=== PATIENT | female | born 1975 | race Caucasian/White ===

== ENCOUNTER → 2016-08-28 | Outpatient (CLI) | payer BC ==
[~2016-08-28] MED LIST: BACT400T PO; DOXY100C PO; HYDR7.5T76 PO; MIRA33504 PO
== END ==
LOC: CPRE 10:49
PROVIDERS: ATTEND Obstetrics & Gynecology
DX: Z01.812 Encounter for preprocedural laboratory examination (principal); R10.2 Pelvic and perineal pain

== ENCOUNTER → 2016-09-05 | Day surgery (SDC) | payer BC ==
[~2016-09-05] VITALS: Ht 149.9 cm; Wt 109.3 kg
[~2016-09-05] MED LIST changes: +*hydrOXYzine 25 MG VIAL PERIprocedural Use ONLY IM ONE; +*morphine SULFATE 8 MG/ML PERIprocedure ONLY ONE; +ACETAMINOPHEN 1000 MG/100 ML VIAL IV ONE; -BACT400T PO; +BUPIVACAINE HCL PF 0.25% 30 ML VIAL INFIL ONE; +DICLOFENAC SODIUM 37.5 MG/ML VIAL IV PUSH ONE; +DO NOT ADM ANY ANTICOAGULANT DRUGS XX PRN; -DOXY100C PO; +FAMOTIDINE 20 MG/2 ML VIAL ONE; +HYDROmorphone HCL PF 1 MG/ML VIAL IVP PRN; +IBUPROFEN 600 MG TAB PO PRN; +INSULIN HUMAN REGULAR 1,000 UNITS/10 ML VIAL SQ PRN; +KETOROLAC TROMETHAMINE 30 MG/ML (IVP) VIAL IVP PRN; +LACTATED RINGER'S 1000 ML INJ 1,000 ML IV ONE; +LACTATED RINGER'S 1000 ML INJ 1,000 ML IV SCH; +LACTATED RINGER'S 1000 ML IV SCH; +LORazepam 0.5 MG TAB PO PRN; +METOPROLOL TARTRATE 25 MG TAB PO PRN; +MORPHINE SULFATE 8 MG/ML INJ ONE; +NORMOSOL R INJ 1,000 ML IV ONE; +ONDANSETRON HCL 4 MG/2 ML VIAL IV PUSH ONE; +ONDANSETRON HCL 4 MG/2 ML VIAL IVP PRN; +PROMETHAZINE INJ 25 MG/ML VIAL IM PRN; +PROPOFOL 200 MG/20 ML AMP IV ONE; +SODIUM CHLORID 0.9% 500 ML IV SCH; +SODIUM CHLORIDE 0.9% FLUSH 5 ML FLUSH FLUSH PRN; +SODIUM CHLORIDE 0.9% FLUSH 5 ML FLUSH FLUSH SCH; +SUGAMMADEX SODIUM 200 MG/2 ML VIAL IV PUSH ONE; +ceFAZolin 2 GM PREMIX 50 ML IV SCH; +diphenhydrAMINE HCL 25 MG CAP PO PRN; +ePHEDrine/NS 50 MG/5 ML SYR IV ONE; +fentaNYL CITRATE 250 MCG/5 ML AMP ONE; +oxyCODONE/ACETAMINOPHEN 5 MG/325 MG TAB PO PRN
[2016-09-05 06:29] VITALS: BP 134/71; PULSE 76; RESP 16; TEMP 98.1; O2SAT 100
[2016-09-05] MEDS: APREPITANT 40 MG CAP PO SCH (06:36)
[2016-09-05 11:50] VITALS: BP 120/83; PULSE 67; RESP 20; TEMP 97.4; O2SAT 99
--- NOTE | 2016-09-10 12:31 | MP ---
cc: VINCENZO FRIEDMAN M.D. DATE OF SURGERY: 09/05/2016 PREOPERATIVE DIAGNOSIS Pelvic pain, symptomatic right ovarian cyst. PROCEDURE Diagnostic laparoscopy exam under anesthesia. POSTOPERATIVE DIAGNOSIS Pelvic pain, symptomatic right ovarian cyst, normal pelvis. ANESTHESIA General with endotracheal intubation. ESTIMATED BLOOD LOSS None. DRAINS Batista to gravity during procedure only, 690 cc out. INDICATION FOR PROCEDURE The patient has been followed over time with pelvic ultrasounds demonstrating an enlarging right ovarian cyst. Recent ultrasound measured 5 x 6 cm solitary cyst of the right ovary enlarged from the previous ultrasound. Recommendation was to proceed with diagnostic laparoscopy, possible ovarian cystectomy, possible ovarian oophorectomy. The patient received Ancef prophylactically x2 grams. OPERATIVE FINDINGS The patient had normal-appearing external genitalia. Cervix was normal. Uterus was small, slightly retroverted. Pelvic findings revealed normal-appearing adnexa. There was no evidence of a right ovarian cyst or cyst in the pelvis or fallopian tube. The appendix was normal. The uterus was slightly scarred. Previous section was noted and well-healed without any extensive adhesions. The upper quadrants appeared normal. PROCEDURE DESCRIPTION The patient was taken to the operating room and under general anesthesia had an endotracheal tube placed. She was carefully positioned in the dorsal lithotomy position using Girish stirrups on the lower extremities. She had appropriate padding and appropriate positioning. Sequentials were placed on lower extremities for VTE prophylaxis. After she was prepped and draped a timeout was conducted and agreed by all present in the room. A simple exam revealed the findings stated above. A Batista catheter was inserted under sterile conditions draining clear urine. The cervix was identified with a bivalve retractor. A tenaculum was attached anteriorly. A uterine sound was placed to about 8 cm. The cervix was dilated and a HUMI manipulator was inserted through the cervical os and secured. Retractors were removed. Gloves were changed. The abdomen was examined. Previous Pfannenstiel scar was well-healed. An attempt to place a trocar directly through the umbilicus was unsuccessful. A Veress needle was utilized to insufflate at low pressure and then once this pneumoperitoneum was established the trocar was inserted through the umbilicus into the peritoneal cavity without complication. Examination of the pelvis required steep Trendelenburg positioning and placement of an accessory port on the right lateral flank. This was placed under direct vision. Manipulation of the pelvic anatomy revealed the findings stated above. Photographs were taken. The appendix was normal. The liver edge and upper quadrant appeared normal. At the completion of the case the patient was stable. Hemostasis was confirmed. The trocars were removed after decompression of the pneumoperitoneum. The skin incisions were closed with a subcuticular suture of 4-0 Monocryl, Steri-Strips and Band-Aids. The HUMI manipulator, tenaculum and Batista were removed in a sterile fashion without complication. No vaginal bleeding. At the completion of the case the patient was stable, extubated, and taken to the recovery room on room air. Vincenzo Friedman MD SJSammy/BT /8:59 AM /12:19 PM
== END | disposition home or self-care (01) ==
LOC: HSDC 05:40
PROVIDERS: ATTEND Obstetrics & Gynecology
DX: R10.2 Pelvic and perineal pain (principal); N83.201 Unspecified ovarian cyst, right side
CPT/HCPCS: 00840; 49320; 86850; 86900; 86901; J0131; J0690; J1130; J2270; J2405; J3010; J3410; J7120; J8501

== ENCOUNTER 2016-09-18 08:45 | Emergency (ER) | payer BC ==
[~2016-09-18] VITALS: Ht 149.9 cm; Wt 109.0 kg
[2016-09-18 08:59] VITALS: BP 123/80; PULSE 60; RESP 16; TEMP 98.6; O2SAT 100
[2016-09-18] MEDS ORDERED: MIRA33504 PO (09:08)
[2016-09-18 09:18] LABS: BLOOD, URINE NEG (NEG); GLUCOSE,URINE NEG (NEG); KETONE, URINE NEG (NEG); NITRITE,URINE NEG (NEG)
[2016-09-18 09:22] LABS: METHOD OF COLLECTION CLEAN CATCH; URINE COLOR YELLOW (YELLW/STRAW)
[2016-09-18 09:24] LABS: BACTERIA, URINE MOD /hpf; COMMENT (UR) CULTURE INDICATED; COMMENT2 (UR) MUCOUS PRESENT; CULTURE IF INDICATED CULTURE INDICATED
--- NOTE | 2016-09-18 09:31 | PD ---
HPI Chief Complaint: Abdominal Pain Time Seen by Provider: 09:01 Travel History International Travel<30 days: No Contact w/Intl Traveler<30days: No Traveled to known affect area: No History of Present Illness HPI The patient was seen and examined in the presence of the nurse. This patient complains of abdominal pain. Duration is 10 days. Location is right upper quadrant. Started a day or 2 after she had exploratory laparoscopy was essentially negative. Pain is worse when she moves or shifts position. She has some nausea but no vomiting or fever. She has been eating. She had an outpatient CT of abdomen and pelvis yesterday at [facility]. Symptoms severity is moderate. No alleviating factors. PFSH Past Medical History Arthritis: No Asthma: Yes (CHILD) Autoimmune Disease: No Blood Disorders: No Anxiety: No Depression: No Heart Rhythm Problems: No Cancer: Yes (MYODYSPLASIA CERVIX) Cardiovascular Problems: No High Cholesterol: No Chemotherapy: No Chest Pain: No Congestive Heart Failure: No COPD: No Cerebrovascular Accident: No Diabetes: No Diminished Hearing: No Endocrine: No Gastrointestinal Disorders: No GERD: No Glaucoma: No Genitourinary: No Headaches: Yes Hepatitis: No Hiatal Hernia: No Heparin Induced Thrombocytopen: No Hypertension: No Immune Disorder: No Kidney Stones: No Musculoskeletal: No Neurologic: Yes (MIGRAINES) Psychiatric: No Reproductive: Yes (CYST ON RIGHT OVARY) Respiratory: Yes (Asthma CHILD) Immunizations Current: Yes Migraines: Yes Myocardial Infarction: No Radiation Therapy: No Renal Failure: No Seizures: No Sickle Cell Disease: No Sleep Apnea: No Thyroid Disease: No Ulcer: No Tetanus Vaccination: < 5 Years ?: Not : 2 Para: 2 Ovarian Cysts: Yes (1993) Tubal Ligation: Yes Past Surgical History Abdominal Surgery: No AICD: No Appendectomy: No Arteriovenous Shunt: No Cardiac Surgery: No Section: Yes (X1) Cholecystectomy: No Ear Surgery: Yes ("TUBES,CHILDHOOD") Endocrine Surgery: No Eye Surgery: No Genitourinary Surgery: No Gynecologic Surgery: Yes (CERVICAL CRYO, , ABLATION, TUBAL LIGATION) Insulin Pump: No Joint Replacement: No Neurologic Surgery: No Oral Surgery: No Pacemaker: No Thoracic Surgery: No Other Surgery: Yes (1993--CRYO(CERVIX)) Social History Alcohol Use: Yes (SOCIAL) Tobacco Use: No Substance Use: No Allergies-Medications (Allergen,Severity, Reaction): Coded Allergies: Levaquin (Verified Allergy, Severe, Rash, 09/18/16) Metrogel (Verified Allergy, Severe, Rash, 09/18/16) Reported Meds & Prescriptions Reported Meds & Active Scripts Active Reported Miralax Powder (Polyethylene Glycol 3350 Powder) 17 Gm Powd 17 Gm PO DAILY Mix and dissolve one measuring cap-ful (17 grams) in water or juice. Review of Systems General / Constitutional: No: Fever Eyes: No: Visual changes HENT: No: Headaches Cardiovascular: No: Chest Pain or Discomfort Respiratory: No: Shortness of Breath Gastrointestinal: Positive: Nausea, Abdominal Pain Genitourinary: No: Dysuria Musculoskeletal: No: Pain Skin: No Rash Neurologic: No: Weakness Psychiatric: No: Depression Endocrine: No: Polydipsia Hematologic/Lymphatic: No: Easy Bruising Physical Exam Narrative GENERAL: Well-nourished, well-developed patient with right upper quadrant pain. SKIN: Warm and dry. HEAD: Atraumatic. Normocephalic. EYES: Pupils equal and round. No scleral icterus. No injection or drainage. ENT: No nasal bleeding or discharge. Mucous membranes pink and moist. NECK: Trachea midline. No JVD. CARDIOVASCULAR: Regular rate and rhythm. No murmur appreciated. RESPIRATORY: No accessory muscle use. Clear to auscultation. Breath sounds equal bilaterally. GASTROINTESTINAL: Abdomen soft, right upper quadrant is tender but no rebound or guarding, nondistended. Hepatic and splenic margins not palpable. MUSCULOSKELETAL: No obvious deformities. No clubbing. No cyanosis. No edema. NEUROLOGICAL: Awake and alert. No obvious cranial nerve deficits. Motor grossly within normal limits. Normal speech. PSYCHIATRIC: Appropriate mood and affect; insight and judgment normal. Data Data Last Documented VS Vital Signs Date Time Temp Pulse Resp B/P Pulse Ox O2 Delivery O2 Flow Rate FiO2 09/18/16 08:59 98.6 60 16 123/80 100 Orders Urinalysis - C+S If Indicated (09/18/16 09:01) Ed Urine Pregnancytest Poc (09/18/16 09:01) Urine Culture (09/18/16 09:00) Complete Blood Count With Diff (09/18/16 09:25) Comprehensive Metabolic Panel (09/18/16 09:25) Lipase (09/18/16 09:25) Labs Laboratory Tests Test 09/18/16 09/18/16 09:00 09:30 Urine Collection Type CLEAN CATCH Urine Color YELLOW Urine Turbidity CLEAR Urine pH 7.0 Urine Specific [place] 1.013 Urine Protein NEG mg/dL Urine Glucose (UA) NEG mg/dL Urine Ketones NEG mg/dL Urine Occult Blood NEG Urine Nitrite NEG Urine Bilirubin NEG Urine Leukocyte Esterase NEG Urine Squamous Epithelial 6-8 /hpf Cells Urine Amorphous Sediment FEW Urine Bacteria MOD /hpf Microscopic Urinalysis Comment CULTURE INDICATED Urine Collection Time 0900 White Blood Count 7.4 TH/MM3 Red Blood Count 5.39 MIL/MM3 Hemoglobin 14.9 GM/DL Hematocrit 46.1 % Mean Corpuscular Volume 85.5 FL Mean Corpuscular Hemoglobin 27.6 PG Mean Corpuscular Hemoglobin 32.3 % Concent Red Cell Distribution Width 14.9 % Platelet Count 179 TH/MM3 Mean Platelet Volume 10.1 FL Neutrophils (%) (Auto) 69.0 % Lymphocytes (%) (Auto) 24.2 % Monocytes (%) (Auto) 5.6 % Eosinophils (%) (Auto) 0.8 % Basophils (%) (Auto) 0.4 % Neutrophils # (Auto) 5.1 TH/MM3 Lymphocytes # (Auto) 1.8 TH/MM3 Monocytes # (Auto) 0.4 TH/MM3 Eosinophils # (Auto) 0.1 TH/MM3 Basophils # (Auto) 0.0 TH/MM3 CBC Comment DIFF FINAL Differential Comment Sodium Level 142 MEQ/L Potassium Level 3.6 MEQ/L Chloride Level 100 MEQ/L Carbon Dioxide Level 29.7 MEQ/L Anion Gap 12 MEQ/L Blood Urea Nitrogen 12 MG/DL Creatinine 0.70 MG/DL Estimat Glomerular Filtration 92 ML/MIN Rate Random Glucose 91 MG/DL Calcium Level 8.5 MG/DL Total Bilirubin 0.6 MG/DL Aspartate Amino Transf 55 U/L (AST/SGOT) Alanine Aminotransferase 99 U/L (ALT/SGPT) Alkaline Phosphatase 164 U/L Total Protein 7.5 GM/DL Albumin 3.5 GM/DL Lipase 206 U/L [facility] Medical Decision Making Medical Screen Exam Complete: Yes Emergency Medical Condition: Yes Medical Record Reviewed: Yes Differential Diagnosis Cholecystitis, biliary colic, hepatitis, pancreatitis Narrative Course I have reviewed the patient's electronic medical record. I reviewed her operative report from recent laparoscopy as well as her CT of abdomen and pelvis done yesterday IV placed CBC is normal Metabolic profile is normal LFTs have minimal elevation of ALT and AST Lipase is normal I discussed her CT scan of abdomen and pelvis with radiologist Dr. Damon. He reports that the CAT scan looks good and there is no explain will cause for her right upper quadrant pain. He specifically noted the gallbladder looks okay. She has both pain and nausea medicine at home but has not been taking them. Etiology of her pain is not clear. She has no fever or leukocytosis. No clinical suspicion of emergent process going on. Recommend she follow up with her physician to discuss the next step. I don't believe she requires hospitalization now. Symptoms are not worse with eating but are worse with movement, certainly this is not typical of cholecystitis. I've advised her to return if she worsens. I gave her copies of her labs and CAT scan and she should discuss them with her physician Diagnosis Primary Impression: Abdominal pain Qualified Code: R10.11 - Right upper quadrant abdominal pain Additional Instructions: The patient was advised to follow up with their physician and return if they worsen. Med/Other Pt SpecificInfo: Other Disposition: 01 DISCHARGE HOME Condition: Stable Mookie Damon MD Sep 18, 2016 09:31
[2016-09-18 09:38] LABS: AUTOMATED NEUTROPHIL # 5.1 TH/MM3 (1.8-7.7); BASOPHIL % 0.4 % (0.0-2.0); EOSINOPHIL # 0.1 TH/MM3 (0-0.4); EOSINOPHIL % 0.8 % (0.0-4.0); HEMATOCRIT 46.1 % (35.0-46.0); HEMO FLAGS DIFF FINAL; LYMPH % 24.2 % (9.0-44.0); LYMPHOCYTE # 1.8 TH/MM3 (1.0-4.8); MEAN CELL VOLUME 85.5 FL (80.0-100.0); MEAN CORPUSCULAR HEMOGLOBIN 27.6 PG (27.0-34.0); MEAN CORPUSCULAR HGB CONC 32.3 % (32.0-36.0); MONO % 5.6 % (0.0-8.0); PLATELET COUNT 179 TH/MM3 (150-450); RED BLOOD COUNT 5.39 MIL/MM3 (4.00-5.30); RED CELL DISTRIBUTION WIDTH 14.9 % (11.6-17.2); WHITE BLOOD COUNT 7.4 TH/MM3 (4.0-11.0)
[2016-09-18 09:53] LABS: BLOOD UREA NITROGEN 12 MG/DL (7-18)
[2016-09-18 09:54] LABS: CHLORIDE 100 MEQ/L (98-107); GLOMERULAR FILTRATION RATE 92 ML/MIN (>89); POTASSIUM 3.6 MEQ/L (3.5-5.1); SODIUM (NA) 142 MEQ/L (136-145)
[2016-09-18 10:36] LABS: ALKALINE PHOSPHATASE 164 U/L (45-117); ANION GAP 12 MEQ/L (5-15); BICARBONATE 29.7 MEQ/L (21.0-32.0); TOTAL BILIRUBIN ADULT 0.6 MG/DL (0.2-1.0)
[2016-09-18 10:51] LABS: ALT (GPT) 99 U/L (10-53); AST (GOT) 55 U/L (15-37)
[2016-09-18 11:13] VITALS: BP 102/63
== END 2016-09-18 11:28 | disposition home or self-care (01) ==
LOC: PHED 08:45
DX: R10.11 Right upper quadrant pain (principal)
CPT/HCPCS: 80053; 81001; 83690; 84703; 85025; 87086; 99284

== ENCOUNTER 2016-09-19 12:39 | Observation (INO) | payer BC ==
[~2016-09-19 12:39] MED LIST changes: -*hydrOXYzine 25 MG VIAL PERIprocedural Use ONLY IM ONE; -*morphine SULFATE 8 MG/ML PERIprocedure ONLY ONE; -ACETAMINOPHEN 1000 MG/100 ML VIAL IV ONE; -BUPIVACAINE HCL PF 0.25% 30 ML VIAL INFIL ONE; -DICLOFENAC SODIUM 37.5 MG/ML VIAL IV PUSH ONE; -DO NOT ADM ANY ANTICOAGULANT DRUGS XX PRN; -FAMOTIDINE 20 MG/2 ML VIAL ONE; -HYDR7.5T76 PO; -HYDROmorphone HCL PF 1 MG/ML VIAL IVP PRN; -IBUPROFEN 600 MG TAB PO PRN; -INSULIN HUMAN REGULAR 1,000 UNITS/10 ML VIAL SQ PRN; -KETOROLAC TROMETHAMINE 30 MG/ML (IVP) VIAL IVP PRN; -LACTATED RINGER'S 1000 ML INJ 1,000 ML IV ONE; -LACTATED RINGER'S 1000 ML INJ 1,000 ML IV SCH; -LACTATED RINGER'S 1000 ML IV SCH; -LORazepam 0.5 MG TAB PO PRN; -METOPROLOL TARTRATE 25 MG TAB PO PRN; -MORPHINE SULFATE 8 MG/ML INJ ONE; -NORMOSOL R INJ 1,000 ML IV ONE; -ONDANSETRON HCL 4 MG/2 ML VIAL IV PUSH ONE; -ONDANSETRON HCL 4 MG/2 ML VIAL IVP PRN; -PROMETHAZINE INJ 25 MG/ML VIAL IM PRN; -PROPOFOL 200 MG/20 ML AMP IV ONE; -SODIUM CHLORID 0.9% 500 ML IV SCH; -SODIUM CHLORIDE 0.9% FLUSH 5 ML FLUSH FLUSH PRN; -SODIUM CHLORIDE 0.9% FLUSH 5 ML FLUSH FLUSH SCH; -SUGAMMADEX SODIUM 200 MG/2 ML VIAL IV PUSH ONE; -ceFAZolin 2 GM PREMIX 50 ML IV SCH; -diphenhydrAMINE HCL 25 MG CAP PO PRN; -ePHEDrine/NS 50 MG/5 ML SYR IV ONE; -fentaNYL CITRATE 250 MCG/5 ML AMP ONE; -oxyCODONE/ACETAMINOPHEN 5 MG/325 MG TAB PO PRN
[2016-09-19] MEDS ORDERED: SODIUM CHLORIDE 0.9% FLUSH 5 ML FLUSH FLUSH PRN (14:30)
[2016-09-19] MEDS ORDERED: HYDROcodone/IBUPROFEN 7.5MG/200MG TAB PO PRN ×2 (14:30→14:45)
[2016-09-19] MEDS ORDERED: diphenhydrAMINE HCL 25 MG CAP PO PRN (14:30)
[2016-09-19] MEDS ORDERED: KETOROLAC TROMETHAMINE 30 MG/ML (IVP) VIAL IVP PRN (14:30)
[2016-09-19] MEDS ORDERED: IBUPROFEN 600 MG TAB PO PRN (14:30)
[2016-09-19] MEDS: LACTATED RINGER'S 1000 ML INJ 1,000 ML IV SCH (15:16)
[2016-09-19] MEDS: SODIUM CHLORIDE 0.9% FLUSH 5 ML FLUSH FLUSH SCH ×2 (15:16→21:00)
[2016-09-19] MEDS ORDERED: ZOLPIDEM TARTRATE 10 MG TAB PO PRN (15:45)
[2016-09-19 16:00] VITALS: BP 137/90; PULSE 54; RESP 20; TEMP 98.2; O2SAT 99
--- NOTE | 2016-09-19 16:39 | MH ---
cc: VINCENZO FRIEDMAN M.D. DATE OF ADMISSION 09/19/2016 DATE OF 1975 HISTORY OF THE PRESENT ILLNESS The patient is a 41-year-old female who is status post operative laparoscopy from two weeks ago, September 12. At one point she had a diagnostic scope for a suspected right ovarian cyst which had resolved spontaneously. There was no other abnormalities noted. The laparoscopy was simply diagnostic procedure which was unremarkable. Since that time the patient developed pain in her right upper quadrant. She was seen in the office on September 17 with increasing left upper quadrant pain. CT scan of the abdomen with contrast revealed a normal liver, gallbladder with no other significant findings. The patient's pain continued and became worse over the next 48 hours. She was seen in the emergency department at [facility] on September 18, [address] Elia Damon. Laboratory values reflected an increase in her liver enzymes, AST and ALT and alkaline phosphatase. Otherwise again no significant findings. Pain was considered moderate. The patient did not warrant admission. The patient over the next 24 hours developed significant pain at which point a direct admission for further evaluation and observation was recommended. The patient is to be admitted for observation, consultation with gastroenterology. MRI of the liver was been ordered. PAST MEDICAL HISTORY The patient's past medical history: 1. The patient has a history of reactive airway disease managed with an inhaler. 2. History of anxiety disorder. 3. Migraine headaches. MEDICATIONS The patient denies the use of any current medications. ALLERGIES SHE HAS AN ALLERGY TO LEVAQUIN AND METROGEL. SOCIAL HISTORY Uses alcohol socially. Denies tobacco or substance abuse. PAST SURGICAL HISTORY Includes: 1. Cervical cryosurgery 1993. 2. section. 3. Endometrial ablation. 4. And tubal ligation. 5. Diagnostic laparoscopy recently two weeks ago. FAMILY HISTORY The patient's family history is noncontributory. PHYSICAL EXAMINATION GENERAL: The patient is an ill-appearing obese female. VITAL SIGNS: Stable. She is afebrile. Blood pressures 116/74. HEENT: Shows no adenopathy, thyromegaly. NECK: Supple. Full range of motion. LUNGS: Clear in all carpenter. CARDIOVASCULAR: Regular rate and rhythm without murmur, rub or gallop. ABDOMEN: Obese. laparoscopy incisions are well-healed. She has pain in the right upper quadrant with rebound and guarding. Normal bowel sounds. PELVIC: Examination is unremarkable. EXTREMITIES: The patient's extremities are symmetrical, full range of motion. There is no cyanosis, clubbing or edema. NEUROLOGICAL: Exam is grossly intact, nonfocal. ASSESSMENT Status post diagnostic laparoscopy with subsequent right upper quadrant pain, elevation in liver enzymes, negative CT scan. PLAN OF MANAGEMENT Admit for observation. Follow liver enzymes. MRI of the liver has been ordered. Medical consultation for co-management and gastroenterology consultation had been ordered. Repeat liver enzymes, CBC, BMP, hepatitis panel have been ordered. Vincenzo Friedman MD SJSammy/KK /3:50 PM /4:22 PM
[2016-09-19] MEDS ORDERED: GADODIAMIDE PF 287 MG/ML 20 ML VIAL (for RAD MRI) IV ONE (16:48)
--- NOTE | 2016-09-19 17:14 | PD.CONS ---
HPI Service [facility] Consult Requested By Dr. Man Reason for Consult Medical management elevated liver enzymes, Right UQ pain. Primary Care Physician Unknown Diagnoses: History of Present Illness Patient is a 41-year-old white female with primary medical history of reactive airway, anxiety, migraine headaches, ovarian cyst. She is status post laparoscopy for ovarian cyst last 09/12/16. The suspected right ovarian cyst spontaneously resolved without any abnormalities noted procedure was done as diagnostic. As per patient report, post laparoscopy the pain remained and never went away. She thought at first that it was related to the procedure however, the pain continues to persist up to to stay. She was seen in the ED yesterday 09/18/16. She was noted to have elevated liver enzymes, ALT, AST and AlkPhos. Otherwise, with no significant findings. She was sent home. Patient was directly admitted today by fountain worker Dr. Man, S patient continues to have significant pain without relief. Consulted for medical management of elevated liver enzymes, right upper quadrant pain. Patient reports pain is in the right upper quadrant. Sharp, rated 10 over 10, states it "takes her breath away." Aggravated by movement. She was taking ibuprofen, no Tylenol to relieve pain. Complains of nausea, no vomiting. She was given MiraLAX prior to admission and states it made her have some good bowel movement. She also reports she was on high protein low-carb diet and had stopped. Denies stool changes, urinary changes. Denies fevers, chills, vomiting, diarrhea, abdominal cramping. Review of Systems Other Negative except for what is noted on history of present illness. Past Family Social History Allergies: Coded Allergies: Levaquin (Verified Allergy, Severe, Rash, 09/18/16) Metrogel (Verified Allergy, Severe, Rash, 09/18/16) Past Medical History Reactive airway Anxiety Migraine headaches Past Surgical History Laparoscopic diagnostic procedure for ovarian cyst Cervical cryosurgery 1993 Endometrial ablation Tubal ligation Reported Medications Motrin Active Ordered Medications Current Medications Medications (Trade) Dose Ordered Sig/Latoya Route Start Time Stop Time Status Last Admin (Lr 1000 ml Inj) 1,000 ml @ 125 mls/hr Q8H IV 09/19/16 15:00 09/19/16 15:16 (NS Flush) 2 ml UNSCH PRN FLUSH 09/19/16 14:30 (NS Flush) 2 ml BID FLUSH 09/19/16 14:30 09/19/16 15:16 (Motrin) 600 mg Q6H PRN PO 09/19/16 14:30 (Toradol Inj) 30 mg Q6H PRN IVP 09/19/16 14:30 09/24/16 14:29 (Benadryl) 25 mg Q6H PRN PO 09/19/16 14:30 (Vicoprofen 7.5-200 Mg) 1 tab Q4H PRN PO 09/19/16 14:30 (Vicoprofen 7.5-200 Mg) 2 tab Q6H PRN PO 09/19/16 14:45 (Ambien) 10 mg HS PRN PO 09/19/16 15:45 Family History Denies significant family medical history Social History Reports occasional alcohol use 1-2 drinks in a month Denies tobacco use Denies illicit drug use Physical Exam Vital Signs Vital Signs Date Time Temp Pulse Resp B/P Pulse Ox O2 Delivery O2 Flow Rate FiO2 09/19/16 16:00 98.2 54 20 137/90 99 Physical Exam GENERAL: This is an obese, well-developed patient, in no apparent distress. SKIN: No rashes, ecchymoses or lesions. Cool and dry. HEAD: Atraumatic. Normocephalic. No temporal or scalp tenderness. EYES: Pupils equal round and reactive. Extraocular motions intact. No scleral icterus. No injection or drainage. ENT: Nose without bleeding. Throat without erythema, tonsillar hypertrophy or exudate. Uvula midline. Airway patent. NECK: Trachea midline. No JVD or lymphadenopathy. Supple, nontender, no meningeal signs. CARDIOVASCULAR: Regular rate and rhythm without murmurs, gallops, or rubs. RESPIRATORY: Clear to auscultation. Breath sounds equal bilaterally. No wheezes , rales, or rhonchi. GASTROINTESTINAL: Abdomen soft, hypoactive bowel sounds. Right upper quadrant tenderness to light palpation. MUSCULOSKELETAL: Extremities without clubbing, cyanosis, or edema. No joint tenderness, effusion, or edema noted. No calf tenderness. Negative Homans sign bilaterally. NEUROLOGICAL: Awake and alert. Oriented 3. Motor and sensory grossly within normal limits. Five out of 5 muscle strength in all muscle groups. No focal neuro deficit. Normal speech. Imaging Abdominal MRI - showed normal size of the liver normal signal intensity. No lesion is identified. Her complaint is within normal limits. Biliary without intra-or extrahepatic biliary ductal dilatation. Gallbladder contains no stones. Negative MRI of the abdomen. Assessment and Plan Problem List: (1) Abdominal pain ICD Code: R10.9 Status: Acute (2) Elevated liver enzymes ICD Code: R74.8 Status: Acute (3) Right upper quadrant abdominal pain ICD Code: R10.11 Status: Acute Assessment and Plan Patient is a 41-year-old white female with primary medical history of reactive airway, anxiety, migraine headaches, ovarian cyst. She is status post laparoscopy for ovarian cyst last 09/12/16. The suspected right ovarian cyst spontaneously resolved without any abnormalities noted procedure was done as diagnostic. As per patient report, post laparoscopy the pain remained and never went away. Consulted for medical management. Right upper quadrant pain - no distention noted, tenderness to light palpation, negative McBurney's. No Jaundiced noted. - ?Guerra's sign, as pain is present with any movement including, increase abdominal pain with inspiration. - Abdominal MRI negative, HIDA scan - AST 55, ALT 99, AlkPhos 164 - Consulted GI - Check hepatitis panel, repeat labs, check UA - Avoid hepatotoxins Elevated liver enzymes - denies any tylenol use, herbal medications or supplements - previously on high protein low calorie diet - AST 55, ALT 99, AlkPhos 164 - Repeat LFTs. Monitor trend. - hepatitis panel ordered Thank you for this consultation. We will follow patient with you. Written by Rick Gilmore, acting as scribe for Dr. Lofton on 09/19/16 at 16:54. Code Status Full code Discussed Condition With Patient, nursing Rick Calvillo Sep 19, 2016 17:14 Clarissa Lofton MD Sep 19, 2016 18:18
--- NOTE | 2016-09-19 17:19 | RADRPT ---
EXAM DATE/TIME: 09/19/2016 16:27 [facility] COMPARISON: No previous studies available for comparison. INDICATIONS : Abdominal pain. CONTRAST: 20 cc Omniscan (gadodiamide) IV MEDICAL HISTORY : None. SURGICAL HISTORY : Tubal ligation. section. ENCOUNTER: Initial ACUITY: 2 weeks PAIN SCORE: 4/10 LOCATION: Right upper quadrant Abdomen. TECHNIQUE: Multiplanar, multisequence magnetic resonance imaging of the abdomen was performed without and with i ntravenous contrast. FINDINGS: LIVER: Normal size with normal signal intensity. No lesion is identified. Portal vein is within normal limi ts. BILIARY: There is no intra- or extra-hepatic biliary ductal dilatation. Gallbladder contains no stones. SPLEEN: Within normal limits. PANCREAS: Within normal limits. ADRENALS: Within normal limits. KIDNEYS: Normal size and signal intensity. There is no hydronephrosis or mass. OTHER: Aorta is nonaneurysmal. There is no lymphadenopathy. CONCLUSION: 1. Negative MRI of the abdomen Prashanth Nichols MD on September 19, 2016 at 17:05 Board Certified Radiologist. This report was verified electronically.
[2016-09-19 21:48] VITALS: BP 123/68; PULSE 66; RESP 18; TEMP 97.5; O2SAT 95
[2016-09-19 22:17] LABS: ALT (GPT) 80 U/L (10-53); ANION GAP 6 MEQ/L (5-15); AST (GOT) 26 U/L (15-37); BICARBONATE 31.1 MEQ/L (21.0-32.0); BLOOD UREA NITROGEN 11 MG/DL (7-18); CHLORIDE 105 MEQ/L (98-107); GLOMERULAR FILTRATION RATE 88 ML/MIN (>89); POTASSIUM 3.2 MEQ/L (3.5-5.1); SODIUM (NA) 142 MEQ/L (136-145)
[2016-09-19 22:20] LABS: ALKALINE PHOSPHATASE 141 U/L (45-117); TOTAL BILIRUBIN ADULT 0.4 MG/DL (0.2-1.0)
[2016-09-20 01:04] VITALS: BP 101/66; PULSE 62; RESP 20; TEMP 97.6; O2SAT 99
[2016-09-20 06:25] VITALS: BP 105/72; PULSE 56; RESP 20; TEMP 97.7; O2SAT 100
[2016-09-20 07:35] LABS: AUTOMATED NEUTROPHIL # 3.4 TH/MM3 (1.8-7.7); BASOPHIL % 0.6 % (0.0-2.0); EOSINOPHIL # 0.1 TH/MM3 (0-0.4); EOSINOPHIL % 2.1 % (0.0-4.0); HEMATOCRIT 41.1 % (35.0-46.0); HEMO FLAGS DIFF FINAL; LYMPH % 34.9 % (9.0-44.0); LYMPHOCYTE # 2.2 TH/MM3 (1.0-4.8); MEAN CELL VOLUME 86.8 FL (80.0-100.0); MEAN CORPUSCULAR HEMOGLOBIN 28.3 PG (27.0-34.0); MEAN CORPUSCULAR HGB CONC 32.6 % (32.0-36.0); MONO % 7.5 % (0.0-8.0); NEUT % 54.9 % (16.0-70.0); PLATELET COUNT 136 TH/MM3 (150-450); RED BLOOD COUNT 4.73 MIL/MM3 (4.00-5.30); WHITE BLOOD COUNT 6.2 TH/MM3 (4.0-11.0)
[2016-09-20 08:00] VITALS: BP 113/75; PULSE 60; RESP 18; TEMP 96.7; O2SAT 100
[2016-09-20 08:00] LABS: BICARBONATE 29.1 MEQ/L (21.0-32.0); POTASSIUM 3.7 MEQ/L (3.5-5.1)
[2016-09-20] MEDS: SODIUM CHLORIDE 0.9% FLUSH 5 ML FLUSH FLUSH SCH (09:00)
--- NOTE | 2016-09-20 09:28 | PD.PN.STU ---
Subjective Remarks Patient is a 41 year old female presenting to the ED with severe RUQ abdominal pain. Initital labs reveal AST 55, ALT 99, Alk Phos 164. PMH of reactive airway , anxiety, migraines, ovarian cyst. Patient had a diagnostic laparoscopic for ovarian cyst on 09/12/16. She believed the pain might be related to post-op, but became more concerned when the pain started to worsen. She describes the pain as very severe and 10/10 sharp stabbing pain. The pain does not radiate anywhere and the patient points to the area under her right breast and ribs. Any movement makes the pain worse and laying in bed still controls the pain. The only medication the patient is taking is motrin for pain control.The patient reports no change in her stool and only changed to diarrhea when she was given miralax when suspected pain was from possible constipation. Also, the patient reports no change in the color or smell of her urine. She reports alcohol use 1-2 times a month, no smoking, and no illicit drug use. She reports family of history of colon cancer and that her mother was diagnosed with fatty liver disease. Objective Vitals AST-55 ALT-99 ALk Phos 164 Hepatitis Panels are pending MRI & CT ABD no findings. General: Patient seems in no acute distress ABD: extreme pain illicit on light palpation of the RUQ. Hypoactive bowel sounds. Vital Signs Date Time Temp Pulse Resp B/P Pulse Ox O2 Delivery O2 Flow Rate FiO2 09/20/16 06:25 97.7 56 20 105/72 100 09/20/16 01:04 97.6 62 20 101/66 99 09/19/16 21:48 97.5 66 18 123/68 95 09/19/16 16:00 98.2 54 20 137/90 99 I/O 09/19/16 09/19/16 09/19/16 09/20/16 09/20/16 09/20/16 07:00 15:00 23:00 07:00 15:00 23:00 Intake Total 760 ml Balance 760 ml Intake Oral 460 ml IV Total 300 ml # Voids 2 Result Diagram: 09/20/16 0620 09/20/16 0620 A/P Assessment and Plan cholelithiasis, hepatitis (autoimmune, fatty liver, A,B,C), Renal stone. IV fluids continue motrin for pain. Await hepatitis panel, renal u/s, repeat gallbladder and hepatic imaging. Gideon Ruiz M3 Sep 20, 2016 09:28
[2016-09-20 09:56] LABS: ALT (GPT) 66 U/L (10-53); AST (GOT) 17 U/L (15-37); GAMMA GT 132 U/L (5-55)
--- NOTE | 2016-09-20 11:14 | HHI.PR ---
Subjective Remarks doing better,has only needed pain medication once since admission. 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 Objective Vital Signs Vital Signs Date Time Temp Pulse Resp B/P Pulse Ox O2 Delivery O2 Flow Rate FiO2 09/20/16 08:00 96.7 60 18 113/75 100 09/20/16 06:25 97.7 56 20 105/72 100 09/20/16 01:04 97.6 62 20 101/66 99 09/19/16 21:48 97.5 66 18 123/68 95 09/19/16 16:00 98.2 54 20 137/90 99 I/O 09/19/16 09/19/16 09/19/16 09/20/16 09/20/16 09/20/16 07:00 15:00 23:00 07:00 15:00 23:00 Intake Total 760 ml Balance 760 ml Intake Oral 460 ml IV Total 300 ml # Voids 2 Result Diagram: 09/20/16 0620 09/20/16 0620 Other Results MRI of abdomen is all negative. liver function improving. Objective Remarks Chest is clear, regular rate and rhythm. Abdomen is soft and non-distended. Point tenderness mid right upper abd.,below ribs Incision is clean and dry. Ext no CCE. A/P Assessment and Plan HD#2, RUQ pain with transient elevation in Liver functions.Stable, MRI was negative,AST.ALT are improving Hepatitis serology and GI consult are pending. I discussed discharge to home once GI has made there assessment Will return to my office next week . Vincenzo Man MD Sep 20, 2016 11:14
--- NOTE | 2016-09-20 11:16 | HHI.DCPOC ---
Discharge Care Plan Your Health Problems Are: Abdominal pain Fever, temperature>100.4 Inflammation/infection Report Symptoms to Your Doctor -Temperate above 100.5 degrees -Redness, of incision or excessive or foul smelling drainage -Unusual pain or calf pain -Increased vaginal bleeding -Painful or difficulty urinating -Feelings of extreme sadness or anxiety after 2 weeks Goals to Promote Your Health * To prevent worsening of your condition and complications * To maintain your health at the optimal level Directions to Meet Your Goals Take your medications as prescribed Follow your dietary instruction Follow activity as directed Ensure plenty of rest for recovery Drink fluids for hydration Keep your appointments as scheduled Take your immunizations and boosters as scheduled If your symptoms worsen call your PCP, if no PCP go to Urgent Care Center or Emergency Room Smoking is Dangerous to Your Health. Avoid second hand smoke Call the 24-hour crisis hotline for domestic abuse at Vincenzo Man MD Sep 20, 2016 11:16
[2016-09-20] MEDS ORDERED: HYDR7.5T76 PO (11:19)
[2016-09-20 12:00] VITALS: BP 113/69; PULSE 61; RESP 18; TEMP 97.4; O2SAT 98
[2016-09-20] MEDS: LACTATED RINGER'S 1000 ML INJ 1,000 ML IV SCH (15:00)
[2016-09-20 16:00] VITALS: BP 118/75; PULSE 72; RESP 18; TEMP 98.1; O2SAT 98
--- NOTE | 2016-09-20 16:52 | PD.CONS ---
HPI History of Present Illness This is a 41 year old female whom we are asked to see for evaluation of acute right upper quadrant abdominal pain patient states the onset was sudden the pain is localized to the right upper quadrant no radiation exacerbated by motion and movement improves with laying down and no movement the patient also has some nausea but no vomiting denies any hematemesis or coffee-ground emesis denies any melena or hematochezia the patient admits to using nonsteroidals for migraines and other pains the patient has been on a diet and has lost quite a bit of weight she also has undergone recent surgery As I entered the room the patient was eating a hamburger REPLACED BY [facility] Past Medical History Migraine Anxiety disorder Past Surgical History Tubal ligation Exploratory' laparoscopy Coded Allergies: Levaquin (Verified Allergy, Severe, Rash, 09/18/16) Metrogel (Verified Allergy, Severe, Rash, 09/18/16) Medications Ibuprofen occasionally Family History Noncontributory Social History Does not smoke and drinks socially and rarely Review of Systems ROS Review of systems Patient denies any headache dizziness blurry vision, denies any chest pain shortness of breath cough fever chills, Denies any palpitations or fatigue denies any polyuria dysuria hematuria, denies any numbness tingling or weakness, denies any skin rash pruritus or jaundice, denies any easy bruising or bleeding tendency, denies any recent change in mood GI Exam Vitals I&O Vital Signs Date Time Temp Pulse Resp B/P Pulse Ox O2 Delivery O2 Flow Rate FiO2 09/20/16 12:00 97.4 61 18 113/69 98 09/20/16 08:00 96.7 60 18 113/75 100 09/20/16 06:25 97.7 56 20 105/72 100 09/20/16 01:04 97.6 62 20 101/66 99 09/19/16 21:48 97.5 66 18 123/68 95 I/O 09/19/16 09/19/16 09/19/16 09/20/16 09/20/16 09/20/16 07:00 15:00 23:00 07:00 15:00 23:00 Intake Total 760 ml Balance 760 ml Intake Oral 460 ml IV Total 300 ml # Voids 2 4 Imaging Last Impressions Abdomen MRI 09/19/16 0000 Signed Impressions: Service Date/Time: Monday, September 19, 2016 16:27 - CONCLUSION: 1. Negative MRI of the abdomen Prashanth Nichols MD Laboratory Test 09/19/16 09/20/16 09/20/16 20:20 06:20 09:07 Sodium Level 142 MEQ/L 140 MEQ/L Potassium Level 3.2 MEQ/L 3.7 MEQ/L Chloride Level 105 MEQ/L 105 MEQ/L Carbon Dioxide Level 31.1 MEQ/L 29.1 MEQ/L Anion Gap 6 MEQ/L 6 MEQ/L Blood Urea Nitrogen 11 MG/DL 12 MG/DL Creatinine 0.73 MG/DL 0.70 MG/DL Estimat Glomerular Filtration 88 ML/MIN 92 ML/MIN Rate Random Glucose 95 MG/DL 89 MG/DL Calcium Level 8.6 MG/DL 8.6 MG/DL Total Bilirubin 0.4 MG/DL Aspartate Amino Transf 26 U/L 17 U/L (AST/SGOT) Alanine Aminotransferase 80 U/L 66 U/L (ALT/SGPT) Alkaline Phosphatase 141 U/L Total Protein 6.8 GM/DL Albumin 3.3 GM/DL White Blood Count 6.2 TH/MM3 Red Blood Count 4.73 MIL/MM3 Hemoglobin 13.4 GM/DL Hematocrit 41.1 % Mean Corpuscular Volume 86.8 FL Mean Corpuscular Hemoglobin 28.3 PG Mean Corpuscular Hemoglobin 32.6 % Concent Red Cell Distribution Width 15.0 % Platelet Count 136 TH/MM3 Mean Platelet Volume 10.0 FL Neutrophils (%) (Auto) 54.9 % Lymphocytes (%) (Auto) 34.9 % Monocytes (%) (Auto) 7.5 % Eosinophils (%) (Auto) 2.1 % Basophils (%) (Auto) 0.6 % Neutrophils # (Auto) 3.4 TH/MM3 Lymphocytes # (Auto) 2.2 TH/MM3 Monocytes # (Auto) 0.5 TH/MM3 Eosinophils # (Auto) 0.1 TH/MM3 Basophils # (Auto) 0.0 TH/MM3 CBC Comment DIFF FINAL Differential Comment Gamma Glutamyl Transpeptidase 132 U/L Physical Examination HEENT: Pupils round and reactive to light; normocephalic; atraumatic; no jaundice. Throat is clear. NECK: Neck is supple, no JVD, no lymphadenopathy. CHEST: Chest is clear to auscultation and percussion. CARDIAC: Regular rate and rhythm with no murmur gallop or rubs. ABDOMEN: Soft, nondistended, right upper quadrant tenderness localized; no hepatosplenomegaly; bowel sounds are present in all four quadrants. EXTREMITIES: No clubbing, cyanosis, or edema. SKIN: Normal; no rash; no jaundice. 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 Assessment and Plan Plan Right upper quadrant abdominal pain localized no radiation exacerbated my motion this most likely represents abdominal wall pain Consideration should be made for pain management to inject locally Otherwise consideration would be made for a muscle relaxer and an anti- inflammatory Patient may be discharged from a GI standpoint She is also noted to have a slight elevation of her liver function tests this most likely represents fatty liver but further workup can be done as an outpatient Patient to follow up with GI post discharge Patient advised low fat diet with exercise and weight loss Go Thornton MD Sep 20, 2016 16:52
--- NOTE | 2016-09-21 07:34 | HHI.PR ---
Subjective Remarks Late entry from 09/20/2016 Patient seen and examined, she stated abdominal pain is better, I discussed with GI, they suggest more likely abdominal wall pain, no fever or chills no nausea or vomiting cleared by TECHNICAL MGR and GI for discharge Objective Vitals Vital Signs Date Time Temp Pulse Resp B/P Pulse Ox O2 Delivery O2 Flow Rate FiO2 09/20/16 16:00 98.1 72 18 118/75 98 09/20/16 12:00 97.4 61 18 113/69 98 09/20/16 08:00 96.7 60 18 113/75 100 Result Diagram: 09/20/16 0620 09/20/16 0620 Imaging Last Impressions Abdomen MRI 09/19/16 0000 Signed Impressions: Service Date/Time: Monday, September 19, 2016 16:27 - CONCLUSION: 1. Negative MRI of the abdomen Prashanth Nichols MD Objective Remarks GENERAL: This is a well-nourished, well-developed patient, in no apparent distress. SKIN: No rashes, warm and dry HEAD: Atraumatic. Normocephalic. EYES: Pupils equal round and reactive. Extraocular motions intact. No scleral icterus. ENT: Nose without bleeding, or drainage, Airway patent. NECK: Trachea midline. Supple CARDIOVASCULAR: Regular rate and rhythm without murmurs, gallops, or rubs. RESPIRATORY: Fair air entry bilaterally. No wheezes, rales, or rhonchi. GASTROINTESTINAL: Abdomen soft, non-tender, nondistended. Positive bowel sounds MUSCULOSKELETAL: Extremities without clubbing, cyanosis, or edema. Pedal pulses appreciated NEUROLOGICAL: Awake and alert. Moves all extremity. Normal speech.no focal neurological deficit A/P Problem List: (1) Abdominal pain ICD Code: R10.9 Status: Acute (2) Elevated liver enzymes ICD Code: R74.8 Status: Acute (3) Right upper quadrant abdominal pain ICD Code: R10.11 Status: Acute Assessment and Plan Assessment and Plan Patient is a 41-year-old white female with primary medical history of reactive airway, anxiety, migraine headaches, ovarian cyst. She is status post laparoscopy for ovarian cyst last 09/12/16. The suspected right ovarian cyst spontaneously resolved without any abnormalities noted procedure was done as diagnostic. As per patient report, post laparoscopy the pain remained and never went away. Consulted for medical management. Right upper quadrant pain - no distention noted, tenderness to light palpation, negative McBurney's. No Jaundiced noted. - Abdominal MRI negative, - AST 55, ALT 99, AlkPhos 164 -GI consulted, discussed with Dr. Vale he cleared patient for discharge, mostly abdominal wall pain to follow up as a outpatient -Pending hepatitis panel, follow up with GI as an outpatient - Avoid hepatotoxins Elevated liver enzymes - denies any tylenol use, herbal medications or supplements -Most likely [place], patient counseled about losing weight and lifestyle changes, follow with GI Medically cleared for discharge Clarissa Lofton MD Sep 21, 2016 07:34
== END 2016-09-20 16:48 | disposition home or self-care (01) ==
LOC: NEPGCP 14:15 → INTOOBSV 14:15
PROVIDERS: ADMIT Obstetrics & Gynecology; ATTEND Obstetrics & Gynecology
DX: R10.9 Unspecified abdominal pain (principal); R74.8 Abnormal levels of other serum enzymes; R10.11 Right upper quadrant pain; R50.9 Fever, unspecified; Z98.890 Other specified postprocedural states
CPT/HCPCS: 74183; 80048; 80053; 80074; 82977; 84450; 84460; 85025; A9579; G0378; J7120

== ENCOUNTER 2017-03-21 12:12 | Emergency (ER) | payer BC ==
[~2017-03-21] VITALS: Ht 149.9 cm; Wt 109.5 kg
[~2017-03-21 12:12] MED LIST changes: +HYDR7.5T76 PO
[2017-03-21 12:17] VITALS: BP 150/86; PULSE 65; RESP 16; TEMP 98; O2SAT 99
[2017-03-21 12:30] VITALS: O2SAT 100
[2017-03-21] MEDS ORDERED: diphenhydrAMINE HCL 50 MG/ML VIAL IVP ONE (12:30)
[2017-03-21] MEDS ORDERED: SODIUM CHLORIDE 0.9% FLUSH 10 ML FLUSH IV FLUSH PRN (12:30)
[2017-03-21] MEDS ORDERED: FAMOTIDINE 20 MG/2 ML VIAL IV PUSH ONE (12:30)
[2017-03-21] MEDS ORDERED: methylPREDNISolone SOD SUCC 125 MG/2 ML VIAL IVP ONE (12:30)
--- NOTE | 2017-03-21 12:33 | PD ---
HPI Chief Complaint: Allergic/Adverse Reaction Time Seen by Provider: 12:17 Travel History International Travel<30 days: Yes Contact w/Intl Traveler<30days: Yes Name of Country Traveled to: [facility] Traveled to known affect area: No History of Present Illness HPI AFTER SPENDING TIME IN [facility] [place], WAS EXPOSED TO LOBSTER (WHICH SHE KNOWS SHE IS ALLERGIC TO, BUT THOUGHT THAT TAKING BENADRYL WAS ALL SHE NEEDED TO HOLD OFF REACTION) PRESENTS TODAY BECAUSE SHE WOKE UP WITH LIP SWELLING AND SOME TONGUE SWELLING ONSET SINCE 10AM TODAY, NO DIFFICULTY BREATHING TODAY. PFSH Past Medical History Arthritis: No Asthma: Yes (CHILD) Autoimmune Disease: No Blood Disorders: No Anxiety: No Depression: No Heart Rhythm Problems: No Cancer: Yes (MYODYSPLASIA CERVIX) Cardiovascular Problems: No High Cholesterol: No Chemotherapy: No Chest Pain: No Congestive Heart Failure: No COPD: No Cerebrovascular Accident: No Diabetes: No Diminished Hearing: No Endocrine: No Gastrointestinal Disorders: No GERD: No Glaucoma: No Genitourinary: No Headaches: Yes Hepatitis: No Hiatal Hernia: No Heparin Induced Thrombocytopen: No Hypertension: No Immune Disorder: No Kidney Stones: No Musculoskeletal: No Neurologic: Yes (MIGRAINES) Psychiatric: No Reproductive: Yes (CYST ON RIGHT OVARY) Respiratory: Yes (Asthma CHILD) Immunizations Current: Yes Migraines: Yes Myocardial Infarction: No Radiation Therapy: No Renal Failure: No Seizures: No Sickle Cell Disease: No Sleep Apnea: No Thyroid Disease: No Ulcer: No ?: Not : 2 Para: 2 Ovarian Cysts: Yes (1993) Tubal Ligation: Yes Past Surgical History Abdominal Surgery: No AICD: No Appendectomy: No Arteriovenous Shunt: No Cardiac Surgery: No Section: Yes (X1) Cholecystectomy: No Ear Surgery: Yes ("TUBES,CHILDHOOD") Endocrine Surgery: No Eye Surgery: No Genitourinary Surgery: No Gynecologic Surgery: Yes (CERVICAL CRYO, , ABLATION, TUBAL LIGATION) Insulin Pump: No Joint Replacement: No Neurologic Surgery: No Oral Surgery: No Pacemaker: No Thoracic Surgery: No Other Surgery: Yes (1993--CRYO(CERVIX)) Social History Alcohol Use: Yes (SOCIAL) Tobacco Use: No Substance Use: No Allergies-Medications (Allergen,Severity, Reaction): Coded Allergies: Levaquin (Verified Allergy, Severe, Rash, 03/21/17) Metrogel (Verified Allergy, Severe, Rash, 03/21/17) Shellfish (Verified Allergy, Severe, Swelling, 03/21/17) Reported Meds & Prescriptions Reported Meds & Active Scripts Active No Active Prescriptions or Reported Medications Review of Systems Except as stated in HPI: all other systems reviewed are Neg HENT: Positive: Other (LIP SWELLING) Physical Exam Narrative GENERAL: SKIN: Warm and dry. HEAD: Atraumatic. Normocephalic. EYES: Pupils equal and round. No scleral icterus. No injection or drainage. ENT: No nasal bleeding or discharge. Mucous membranes pink and moist. NECK: Trachea midline. No JVD. CARDIOVASCULAR: Regular rate and rhythm. RESPIRATORY: No accessory muscle use. Clear to auscultation. Breath sounds equal bilaterally. GASTROINTESTINAL: Abdomen soft, non-tender, nondistended. MUSCULOSKELETAL: Extremities without clubbing, cyanosis, or edema. No obvious deformities. NEUROLOGICAL: Awake and alert. No obvious cranial nerve deficits. Motor grossly within normal limits. Five out of 5 muscle strength in the arms and legs. Normal speech. PSYCHIATRIC: Appropriate mood and affect; insight and judgment normal. Data Data Last Documented VS Vital Signs Date Time Temp Pulse Resp B/P Pulse Ox O2 Delivery O2 Flow Rate FiO2 03/21/17 12:30 100 Room Air 03/21/17 12:17 98.0 65 16 150/86 Orders Ecg Monitoring (03/21/17 12:28) Iv Access Insert/Monitor (03/21/17 12:28) Oximetry (03/21/17 12:28) Diphenhydramine Inj (Benadryl Inj) (03/21/17 12:30) Methylprednisolone So Succ Inj (Solumedr (03/21/17 12:30) Famotidine Inj (Pepcid Inj) (03/21/17 12:30) Sodium Chloride 0.9% Flush (Ns Flush) (03/21/17 12:30) Epinephrine (1:1000) Inj (Adrenalin (1:1 (03/21/17 12:30) MDM Medical Decision Making Medical Screen Exam Complete: Yes Emergency Medical Condition: Yes Medical Record Reviewed: Yes Differential Diagnosis ANGIOEDEMA V ALLERGIC RXN Narrative Course PATIENT TOLERATED MEDS WELL, DID NOT DEVELOP WHEEZING/STRIDOR DURING EVALUATIONS AND REEVALUATION. WILL D/C HOME Diagnosis Primary Impression: ACUTE ANGIOEDEMA OF LIPS Patient Instructions: Angioedema (ED), General Instructions Scripts Loratadine (Claritin)10 Mg Cap10 Mg PO DAILY #7 CAP Ref 0 Prov:Arturo Lazaro MD 03/21/17 Famotidine (Pepcid)20 Mg Tab20 Mg PO BID #14 TAB Ref 0 Prov:Arturo Lazaro MD 03/21/17 Methylprednisolone Dosepak (Medrol Dosepak)4 Mg Dspk4 Mg PO DIRECTED #1 DSPK Per Pharmacist direction Prov:Arturo Lazaro MD 03/21/17 Disposition: 01 DISCHARGE HOME Condition: Stable Arturo Lazaro MD Mar 21, 2017 12:33
[2017-03-21] MEDS: EPINEPHrine HCL (1:1000) 1 MG/ML VIAL IM ONE ×2 (12:43→14:01)
[2017-03-21] MEDS ORDERED: MEDR4PAK PO (13:09)
[2017-03-21] MEDS ORDERED: FAMO1TAB37 PO (13:09)
[2017-03-21] MEDS ORDERED: CLAR10CA3 PO (13:09)
[2017-03-21 13:42] VITALS: BP 135/68; PULSE 64; RESP 16; O2SAT 100
[2017-03-21 14:57] VITALS: BP 112/65
== END 2017-03-21 15:05 | disposition home or self-care (01) ==
LOC: PHED 12:12
DX: T78.3XXA Angioneurotic edema, initial encounter (principal)
CPT/HCPCS: 96372; 96374; 96375; 99284; J0171; J1200; J2930

== ENCOUNTER 2017-08-02 12:57 | Emergency (ER) | payer BC ==
[~2017-08-02] VITALS: Ht 149.9 cm; Wt 108.0 kg
[~2017-08-02 12:57] MED LIST changes: +CLAR10CA3 PO; +FAMO1TAB37 PO; -HYDR7.5T76 PO; +MEDR4PAK PO; -MIRA33504 PO
[2017-08-02 13:47] VITALS: BP 128/99; PULSE 79; RESP 18; TEMP 98.2; O2SAT 99
[2017-08-02] MEDS ORDERED: MUCINEX (14:41)
--- NOTE | 2017-08-02 15:20 | PD ---
HPI Chief Complaint: Cold / Flu Symptoms Time Seen by Provider: 15:10 Travel History International Travel<30 days: No Contact w/Intl Traveler<30days: No Traveled to known affect area: No History of Present Illness HPI Patient comes emergency Department complaining of flulike symptoms began a week ago. Patient states she is having cough, fever, and generalized body aches. Patient states she was feeling fine yesterday until she began having left lower quadrant abdominal pain and nonbloody diarrhea. Patient denies any recent antibiotic use. Reports stool is green. Reports associated fever and continued cough. Patient's been using Tylenol and Motrin for symptom management relief. Patient describes a dull pain is sharp and stabbing to palpation and then a dull ache when she is just sitting there. Denies anything making it better or worse. Denies any radiation of the pain. Denies any nausea , vomiting, back pain, loss change in bladder, vaginal discharge, or chest pain. PFSH Past Medical History Hx Anticoagulant Therapy: No Arthritis: No Asthma: Yes (CHILD) Autoimmune Disease: No Blood Disorders: No Anxiety: No Depression: No Heart Rhythm Problems: No Cancer: Yes (MYODYSPLASIA CERVIX) Cardiovascular Problems: No High Cholesterol: No Chemotherapy: No Chest Pain: No Congestive Heart Failure: No COPD: No Cerebrovascular Accident: No Diabetes: No Diminished Hearing: No Endocrine: No Gastrointestinal Disorders: No GERD: No Glaucoma: No Genitourinary: No Headaches: Yes Hepatitis: No Hiatal Hernia: No Heparin Induced Thrombocytopen: No Hypertension: No Immune Disorder: No Kidney Stones: No Musculoskeletal: No Neurologic: Yes (MIGRAINES) Psychiatric: No Reproductive: Yes (CYST ON RIGHT OVARY) Respiratory: Yes (Asthma CHILD) Immunizations Current: Yes Migraines: Yes Myocardial Infarction: No Radiation Therapy: No Renal Failure: No Seizures: No Sickle Cell Disease: No Sleep Apnea: No Thyroid Disease: No Ulcer: No Tetanus Vaccination: < 5 Years ?: Not : 2 Para: 2 Ovarian Cysts: Yes (1993) Tubal Ligation: Yes Past Surgical History Abdominal Surgery: No AICD: No Appendectomy: No Arteriovenous Shunt: No Cardiac Surgery: No Section: Yes (X1) Cholecystectomy: No Ear Surgery: Yes ("TUBES,CHILDHOOD") Endocrine Surgery: No Eye Surgery: No Genitourinary Surgery: No Gynecologic Surgery: Yes (CERVICAL CRYO, , ABLATION, TUBAL LIGATION) Insulin Pump: No Joint Replacement: No Neurologic Surgery: No Oral Surgery: No Pacemaker: No Thoracic Surgery: No Tympanostomy Tube: Yes Other Surgery: Yes (1993--CRYO(CERVIX)) Social History Alcohol Use: Yes (SOCIAL) Tobacco Use: No Substance Use: No Allergies-Medications (Allergen,Severity, Reaction): Coded Allergies: levofloxacin (Unverified Allergy, Severe, Rash, 08/02/17) metronidazole (Unverified Allergy, Severe, Rash, 08/02/17) shellfish derived (Unverified Allergy, Severe, Swelling, 08/02/17) Reported Meds & Prescriptions Reported Meds & Active Scripts Active Bentyl (Dicyclomine HCl) 10 Mg Cap 10 Mg PO TID PRN Tessalon Perles (Benzonatate) 100 Mg Cap 200 Mg PO TID PRN Ventolin Hfa 18 GM Inh (Albuterol Sulfate) 90 Mcg/Act Aer 2 Puff INH Q4-6H PRN Reported [Mucinex] Review of Systems Except as stated in HPI: all other systems reviewed are Neg Physical Exam Narrative GENERAL: Well-developed, overly nourished, in no acute distress, and non-ill appearing. SKIN: Focused skin assessment warm and dry. HEAD: Atraumatic. Normocephalic. EYES: Pupils equal and round. EOMI. No scleral icterus. No injection or drainage. ENT: No nasal bleeding or discharge. Mucous membranes pink and moist. NECK: Trachea midline. Supple. No nuclear rigidity. CARDIOVASCULAR: Regular rate and rhythm. No murmur appreciated. RESPIRATORY: No accessory muscle use. No respiratory distress. Clear to auscultation. Breath sounds equal bilaterally. Dry hacking cough noted on exam. GASTROINTESTINAL: Abdomen soft, nondistended, and no guarding. Hepatic and splenic margins not palpable. Normal bowel sounds 4. No pulsatile mass. Patient reports tenderness to palpation left lower quadrant. MUSCULOSKELETAL: No obvious deformities. No clubbing. No cyanosis. No edema. Full range of motion. NEUROLOGICAL: Awake and alert. No obvious cranial nerve deficits. Motor grossly within normal limits. Normal speech. PSYCHIATRIC: Appropriate mood and affect; insight and judgment normal. Data Data Last Documented VS Vital Signs Date Time Temp Pulse Resp B/P (MAP) Pulse Ox O2 Delivery O2 Flow Rate FiO2 12/15/17 15:33 99 Room Air 08/02/17 13:47 98.2 79 18 128/99 (109) Orders Orders Influenzae A/B Antigen (08/02/17 14:46) Complete Blood Count With Diff (08/02/17 15:14) Comprehensive Metabolic Panel (08/02/17 15:14) Lipase (08/02/17 15:14) Urinalysis - C+S If Indicated (08/02/17 15:14) Iv Access Insert/Monitor (08/02/17 15:14) Ecg Monitoring (08/02/17 15:14) Oximetry (08/02/17 15:14) Chest, Single Ap (08/02/17 15:14) Ct Abd/Pel W/O Iv Contrast (08/02/17 16:40) Ed Discharge Order (08/02/17 17:07) Labs Laboratory Tests Test 08/02/17 15:30 White Blood Count 3.5 TH/MM3 Red Blood Count 5.58 MIL/MM3 Hemoglobin 15.5 GM/DL Hematocrit 47.8 % Mean Corpuscular Volume 85.8 FL Mean Corpuscular Hemoglobin 27.8 PG Mean Corpuscular Hemoglobin Concent 32.4 % Red Cell Distribution Width 13.6 % Platelet Count 127 TH/MM3 Mean Platelet Volume 9.8 FL Neutrophils (%) (Auto) 50.8 % Lymphocytes (%) (Auto) 37.8 % Monocytes (%) (Auto) 9.9 % Eosinophils (%) (Auto) 1.0 % Basophils (%) (Auto) 0.5 % Neutrophils # (Auto) 1.9 TH/MM3 Lymphocytes # (Auto) 1.3 TH/MM3 Monocytes # (Auto) 0.3 TH/MM3 Eosinophils # (Auto) 0.0 TH/MM3 Basophils # (Auto) 0.0 TH/MM3 CBC Comment DIFF FINAL Differential Comment Urine Collection Type VOIDED Urine Color YELLOW Urine Turbidity SLIGHT Urine pH 6.0 Urine Specific Husser 1.029 Urine Protein TRACE mg/dL Urine Glucose (UA) NEG mg/dL Urine Ketones 15 mg/dL Urine Occult Blood NEG Urine Nitrite NEG Urine Bilirubin NEG Urine Leukocyte Esterase NEG Urine WBC 0-2 /hpf Urine Squamous Epithelial Cells >8 /hpf Urine Calcium Oxalate Crystals FEW /hpf Urine Bacteria FEW /hpf Urine Mucus RARE /lpf Microscopic Urinalysis Comment CULT NOT INDICATED Blood Urea Nitrogen 13 MG/DL Creatinine 0.83 MG/DL Random Glucose 80 MG/DL Total Protein 8.2 GM/DL Albumin 3.8 GM/DL Calcium Level 8.5 MG/DL Alkaline Phosphatase 132 U/L Aspartate Amino Transf (AST/SGOT) 40 U/L Alanine Aminotransferase (ALT/SGPT) 51 U/L Total Bilirubin 0.4 MG/DL Sodium Level 139 MEQ/L Potassium Level 3.8 MEQ/L Chloride Level 103 MEQ/L Carbon Dioxide Level 29.3 MEQ/L Anion Gap 7 MEQ/L Estimat Glomerular Filtration Rate 75 ML/MIN Lipase 291 U/L [facility] Medical Decision Making Medical Screen Exam Complete: Yes Emergency Medical Condition: Yes Interpretation(s) CT abdomen and pelvis read by the radiologist shows: 1. No acute pathology. 2. Nonspecific prominence of the lower uterine segment and cervix area. Last Impressions Chest X-Ray 08/02/17 1514 Signed Impressions: Service Date/Time: Wednesday, August 02, 2017 15:16 - CONCLUSION: No acute disease. No significant change has occurred. Blake Moreno MD Differential Diagnosis Influenza, pneumonia, viral syndrome, URI, diverticulitis, gastritis, UTI Narrative Course The patient presented with left sided abdominal pain and the patient was accordingly mildly tender. The patient otherwise appeared comfortable and hydrated. Evaluation revealed no clinical evidence of acute diverticulitis. This may be secondary to patient's use of [id number] medication to treat her for like symptoms earlier in the week. The patient is to return if worsens , pain worsens or changes, develop persistent fever, inability to tolerate fluids with or without vomiting, shortness of breath or difficulty breathing, chest pains or discomfort, unable to establish follow up or as needed. There was no evidence of an acute, surgical abdomen at this time. There was no clinical evidence to support cholecystitis/cholelithiasis, pancreatitis, perforation of gastric ulcer, colitis, diverticulitis, obstruction, volvulus, early appendicitis, or hernial incarceration or strangulation at this time. There was no evidence to support vascular pathology such as AAA, mesenteric ischemia, nor significant GIB. There was also no clinical evidence by history, exam or risk factors to suggest atypical presentation of cardiac disease such as ACS, AMI or atypical angina. No evidence to suggest genitourinary etiology as well. The patient agreed with plan of care and management. The patient was instructed to follow up with their physician. Patient in no obvious distress upon re-evaluation. All pertinent laboratory/ Radiology result(s) discussed with patient. Patient was asked if they wanted to speak to my attending, which the patient did not wish to do at this time. Any questions/concerns in reference to patient diagnosis/condition discussed and clarified prior to patient's discharge. Reinforced sheer importance of close follow up with patient's primary physician or primary care clinic. Instructed patient to return to ED immediately, if symptoms return/worsen. Patient showed understanding of above instructions. Further instructions and recommendations were detailed in discharge paperwork. Patient ambulated without difficulty out of ED at discharge. Diagnosis Primary Impression: Left lower quadrant abdominal pain of unknown etiology Additional Impression: Upper respiratory infection Qualified Codes: J06.9 - Acute upper respiratory infection, unspecified Patient Instructions: Abdominal Pain (ED), General Instructions, Upper Respiratory Infection (ED) Additional Instructions: Follow-up with your primary care physician in 2-3 days for reevaluation. Follow -up with spanner operator regarding incidental findings noted on CT today of prominent cervix and uterus. Take all medication as prescribed. Use over-the- counter Tylenol and/or ibuprofen as needed for fever. Follow instructions on the packaging. Drink plenty of non-caffeinated and nonalcoholic fluids. Return to the emergency department if symptoms get worse. Med/Other Pt SpecificInfo: Prescription(s) given Scripts Dicyclomine (Bentyl) 10 Mg Cap 10 MG PO TID Y for Bowel Management, #15 CAP 0 Refills Prov: Evelio Acharya MD 08/02/17 Benzonatate (Tessalon Perles) 100 Mg Cap 200 MG PO TID Y for COUGH, #30 CAP 0 Refills Prov: Evelio Acharya MD 08/02/17 Albuterol 18 GM Inh (Ventolin Hfa 18 GM Inh) 90 Mcg/Act Aer 2 PUFF INH Q4-6H Y for COUGH, #1 INHALER 0 Refills Prov: Evelio Acharya MD 08/02/17 Disposition: 01 DISCHARGE HOME Condition: Stable Bo Castillo Aug 02, 2017 15:20
[2017-08-02 15:33] VITALS: O2SAT 99
--- NOTE | 2017-08-02 15:34 | RADRPT ---
EXAM DATE/TIME: 08/02/2017 15:16 [facility] COMPARISON: CHEST PA & LAT, January 08, 2016, 1:11. INDICATIONS : Cough. MEDICAL HISTORY : None. SURGICAL HISTORY : None. ENCOUNTER: Initial ACUITY: 2 days PAIN SCORE: 8/10 LOCATION: Bilateral chest FINDINGS: A single view of the chest demonstrates the lungs to be symmetrically aerated without evidence of mas s, infiltrate or effusion. The cardiomediastinal contours are unremarkable. Osseous structures are intact. CONCLUSION: No acute disease. No significant change has occurred. Blake Moreno MD on August 02, 2017 at 15:31 Board Certified Radiologist. This report was verified electronically.
[2017-08-02 15:46] LABS: BLOOD, URINE NEG (NEG); GLUCOSE,URINE NEG (NEG); KETONE, URINE 15 mg/dL (NEG); NITRITE,URINE NEG (NEG); URINE LEUKOCYTE ESTERASE NEG (NEG)
[2017-08-02 15:50] LABS: AUTOMATED NEUTROPHIL # 1.9 TH/MM3 (1.8-7.7); BASOPHIL % 0.5 % (0.0-2.0); HEMATOCRIT 47.8 % (35.0-46.0); HEMOGLOBIN 15.5 GM/DL (11.6-15.3); LYMPH % 37.8 % (9.0-44.0); LYMPHOCYTE # 1.3 TH/MM3 (1.0-4.8); MEAN CELL VOLUME 85.8 FL (80.0-100.0); MEAN CORPUSCULAR HEMOGLOBIN 27.8 PG (27.0-34.0); MEAN CORPUSCULAR HGB CONC 32.4 % (32.0-36.0); MEAN PLATELET VOLUME 9.8 FL (7.0-11.0); MONO % 9.9 % (0.0-8.0); MONOCYTE # 0.3 TH/MM3 (0-0.9); NEUT % 50.8 % (16.0-70.0); PLATELET COUNT 127 TH/MM3 (150-450); RED BLOOD COUNT 5.58 MIL/MM3 (4.00-5.30); RED CELL DISTRIBUTION WIDTH 13.6 % (11.6-17.2); WHITE BLOOD COUNT 3.5 TH/MM3 (4.0-11.0)
[2017-08-02 16:01] LABS: CHLORIDE 103 MEQ/L (98-107); SODIUM (NA) 139 MEQ/L (136-145)
[2017-08-02 16:05] LABS: CALCIUM 8.5 MG/DL (8.5-10.1)
[2017-08-02 16:06] LABS: ALBUMIN 3.8 GM/DL (3.4-5.0); BICARBONATE 29.3 MEQ/L (21.0-32.0); BLOOD UREA NITROGEN 13 MG/DL (7-18); GLUCOSE,RANDOM 80 MG/DL (74-106); LIPASE 291 U/L (73-393)
[2017-08-02 16:09] LABS: ALT (GPT) 51 U/L (10-53); AST (GOT) 40 U/L (15-37); CREATININE 0.83 MG/DL (0.50-1.00); GLOMERULAR FILTRATION RATE 75 ML/MIN (>89)
[2017-08-02 16:10] LABS: TOTAL BILIRUBIN ADULT 0.4 MG/DL (0.2-1.0); TOTAL PROTEIN 8.2 GM/DL (6.4-8.2)
[2017-08-02 16:12] LABS: ALKALINE PHOSPHATASE 132 U/L (45-117); BILIRUBIN, URINE NEG (NEG)
[2017-08-02 16:17] LABS: URINE COLOR YELLOW (YELLW/STRAW)
[2017-08-02 16:18] LABS: MUCUS URINE RARE /lpf (OCC)
[2017-08-02 16:19] LABS: BACTERIA, URINE FEW /hpf; CALCIUM OXALATE CRYSTALS,URINE FEW /hpf; SQUAMOUS EPITHELIAL CELL URINE >8 /hpf (0-5); WBC, URINE 0-2 /hpf (0-5)
--- NOTE | 2017-08-02 17:01 | RADRPT ---
EXAM DATE/TIME: 08/02/2017 16:40 [facility] COMPARISON: No previous studies available for comparison. INDICATIONS : Chronic low pelvic pain ORAL CONTRAST: No oral contrast ingested. RADIATION DOSE: 24.71 CTDIvol (mGy) ; Patient body habitus MEDICAL HISTORY : Cervical cancer, asthma SURGICAL HISTORY : Tubal ligation. section. ENCOUNTER: Initial ACUITY: 2 days PAIN SCALE: 5/10 LOCATION: lower quadrant TECHNIQUE: Volumetric scanning of the abdomen and pelvis was performed. Using automated exposure control and ad justment of the mA and/or kV according to patient size, radiation dose was kept as low as reasonably achievable to obtain optimal diagnostic quality images. DICOM format image data is available electro nically for review and comparison. The lack of IV contrast limits the diagnosis for certain organ pa thology. FINDINGS: LOWER LUNGS: The visualized lower lungs are clear. LIVER: Homogeneous density without lesion. There is no dilation of the biliary tree. No calcified gallston es. SPLEEN: Normal size without lesion. PANCREAS: Within normal limits. KIDNEYS: Normal in size and shape. There is no mass, stone, or hydronephrosis. ADRENAL GLANDS: Within normal limits. VASCULAR: There is no aortic aneurysm. BOWEL/MESENTERY: The stomach, small bowel, and colon demonstrate no acute abnormality. There is no free intraperitone al air or fluid. The appendix is unremarkable. No inflammatory changes. ABDOMINAL WALL: Within normal limits. RETROPERITONEUM: There is no lymphadenopathy. BLADDER: No wall thickening or mass. REPRODUCTIVE: The lower uterine segment and cervix area appears to be prominent. INGUINAL: There is no lymphadenopathy or hernia. MUSCULOSKELETAL: Within normal limits for patient age. CONCLUSION: 1. No acute pathology. 2. Nonspecific prominence of the lower uterine segment and cervix area. Blake Moreno MD on August 02, 2017 at 16:56 Board Certified Radiologist. This report was verified electronically.
[2017-08-02] MEDS ORDERED: BENZ100 PO (17:07)
[2017-08-02] MEDS ORDERED: VENTAER INH (17:07)
[2017-08-02] MEDS ORDERED: DICY10 PO (17:07)
== END 2017-08-02 17:15 | disposition home or self-care (01) ==
LOC: PHEFT 12:57
DX: R10.32 Left lower quadrant pain (principal); J06.9 Acute upper respiratory infection, unspecified
CPT/HCPCS: 71010; 74176; 80053; 81001; 83690; 85025; 87804; 99285

== ENCOUNTER 2017-08-23 00:44 | Emergency (ER) | payer BC ==
[~2017-08-23] VITALS: Ht 149.9 cm; Wt 112.2 kg
[~2017-08-23 00:44] MED LIST changes: +BENZ100 PO; -CLAR10CA3 PO; +DICY10 PO; -FAMO1TAB37 PO; -MEDR4PAK PO; +MUCINEX; +VENTAER INH
[2017-08-23 00:47] VITALS: BP 138/82; PULSE 111; TEMP 98.7; O2SAT 97
--- NOTE | 2017-08-23 01:12 | PD ---
HPI Chief Complaint: fever, sinus pain Time Seen by Provider: 00:49 Travel History International Travel<30 days: No Contact w/Intl Traveler<30days: No Traveled to known affect area: No History of Present Illness HPI The patient is a 42-year-old female that complains of a fever of 101 at home, it was found to be 101 tympanically care, tachycardia and bilateral maxillary sinus pain. The patient has a mild cough. She has mild occasional left ear pain. She has a history of ear infections and PE tubes in her ears in the past in her tympanic membranes are scarred. She has a mild sore throat. PFSH Past Medical History Hx Anticoagulant Therapy: No Arthritis: No Asthma: Yes (CHILD) Autoimmune Disease: No Blood Disorders: No Anxiety: No Depression: No Heart Rhythm Problems: No Cancer: Yes (MYODYSPLASIA CERVIX) Cardiovascular Problems: No High Cholesterol: No Chemotherapy: No Chest Pain: No Congestive Heart Failure: No COPD: No Cerebrovascular Accident: No Diabetes: No Diminished Hearing: No Endocrine: No Gastrointestinal Disorders: No GERD: No Glaucoma: No Genitourinary: No Headaches: Yes Hepatitis: No Hiatal Hernia: No Heparin Induced Thrombocytopen: No Hypertension: No Immune Disorder: No Kidney Stones: No Musculoskeletal: No Neurologic: Yes (MIGRAINES) Psychiatric: No Reproductive: Yes (CYST ON RIGHT OVARY) Respiratory: Yes (Asthma CHILD) Immunizations Current: Yes Migraines: Yes Myocardial Infarction: No Radiation Therapy: No Renal Failure: No Seizures: No Sickle Cell Disease: No Sleep Apnea: No Thyroid Disease: No Ulcer: No : 2 Para: 2 Ovarian Cysts: Yes (1993) Tubal Ligation: Yes Past Surgical History Abdominal Surgery: No AICD: No Appendectomy: No Arteriovenous Shunt: No Cardiac Surgery: No Section: Yes (X1) Cholecystectomy: No Ear Surgery: Yes ("TUBES,CHILDHOOD") Endocrine Surgery: No Eye Surgery: No Genitourinary Surgery: No Gynecologic Surgery: Yes (CERVICAL CRYO, , ABLATION, TUBAL LIGATION) Insulin Pump: No Joint Replacement: No Neurologic Surgery: No Oral Surgery: No Pacemaker: No Thoracic Surgery: No Tympanostomy Tube: Yes Other Surgery: Yes (1993--CRYO(CERVIX)) Social History Alcohol Use: Yes (SOCIAL) Tobacco Use: No Substance Use: No Allergies-Medications (Allergen,Severity, Reaction): Coded Allergies: levofloxacin (Unverified Allergy, Severe, Rash, 08/23/17) metronidazole (Unverified Allergy, Severe, Rash, 08/23/17) shellfish derived (Unverified Allergy, Severe, Swelling, 08/23/17) Reported Meds & Prescriptions Reported Meds & Active Scripts Active Reported Tylenol (Acetaminophen) 325 Mg Tab 650 Mg PO Q6H PRN Ibuprofen 400 Mg Tab 400 Mg PO Q6H PRN Review of Systems Except as stated in HPI: all other systems reviewed are Neg Physical Exam Narrative GENERAL: The patient is alert, oriented 3 in no respiratory distress. Her vital signs show temperature 101 tympanic with heart rate 111 and blood pressure 138/82 with oximetry 97%. SKIN: Focused skin assessment warm/dry. No skin rash is seen. HEAD: Atraumatic. Normocephalic. EYES: Pupils equal and round. No scleral icterus. No injection or drainage. ENT: No nasal bleeding or discharge. Mucous membranes pink and moist. The throat is clear without erythema, abscess or exudate. Maxillary sinuses are both tender to palpation. The tympanic membranes are both distorted but no sign of infection or erythema is present. There is scarring of both tympanic membranes. NECK: Trachea midline. No JVD. There is no meningismus present. CARDIOVASCULAR: Regular rate and rhythm. No murmur appreciated. RESPIRATORY: No accessory muscle use. Clear to auscultation. Breath sounds equal bilaterally. GASTROINTESTINAL: Abdomen soft, non-tender, nondistended. Hepatic and splenic margins not palpable. MUSCULOSKELETAL: No obvious deformities. No clubbing. No cyanosis. No edema. NEUROLOGICAL: Awake and alert. No obvious cranial nerve deficits. Motor grossly within normal limits. Normal speech. PSYCHIATRIC: Appropriate mood and affect; insight and judgment normal. Data Data Last Documented VS Vital Signs Date Time Temp Pulse Resp B/P (MAP) Pulse Ox O2 Delivery O2 Flow Rate FiO2 08/23/17 01:34 20 98 08/23/17 01:29 100.1 111 138/82 (100) Orders Orders Influenzae A/B Antigen (08/23/17 01:13) MDM Medical Decision Making Medical Screen Exam Complete: Yes Emergency Medical Condition: Yes Medical Record Reviewed: Yes Interpretation(s) Influenza a/B antigen is negative for flu a and flu B antigen. Differential Diagnosis Flu syndrome, nonspecific viral syndrome, rhinosinusitis, acute maxillary sinusitis, ear infection, pharyngitis, pneumonia, bronchiolitis Narrative Course The patient has acute bilateral maxillary sinusitis clinically. She likely also has a viral syndrome. 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 The Augmentin is taken twice daily for 14 days. Follow-up with her primary care physician. Disposition: 01 DISCHARGE HOME Condition: Stable Sagar Ortiz MD Aug 23, 2017 01:12
[2017-08-23 01:29] VITALS: BP 138/82; PULSE 111; RESP 20; TEMP 100.1; O2SAT 96
[2017-08-23] MEDS ORDERED: TYLE325T PO (01:42)
[2017-08-23] MEDS ORDERED: IBUP1TAB5 PO (01:42)
[2017-08-23] MEDS ORDERED: AUGM875T3 PO (02:12)
[2017-08-23] MEDS ORDERED: AMOXICILLIN/CLAVULANATE K 875 MG TAB PO ONE (02:15)
[2017-08-23 02:31] VITALS: BP 126/68; TEMP 100
== END 2017-08-23 02:33 | disposition home or self-care (01) ==
LOC: PHED 00:44
DX: J01.00 Acute maxillary sinusitis, unspecified (principal); B34.9 Viral infection, unspecified; H92.02 Otalgia, left ear; J45.909 Unspecified asthma, uncomplicated; Z88.8 Allergy status to other drugs, medicaments and biological substances
CPT/HCPCS: 87804; 99283